=== PATIENT | male | born 1970 | race Caucasian/White ===

== ENCOUNTER 2016-06-20 19:10 | Emergency (ER) | payer OTHER ==
[2016-06-20 20:13] LABS: BASO % 0.2 % (0.2-1.2); EOS # 0.6 10_X3_uL (0.0-0.5); EOS % 3.9 % (0.8-7.0); GRAN # 14.4 10_X3_uL (1.8-5.4); GRAN % 88.7 % (34.0-67.9); HEMATOCRIT 50.4 % (40-51); HEMOGLOBIN 17.9 g/dL (13.7-17.5); LYMPH # 0.4 10_X3_uL (1.3-3.6); LYMPH % 2.3 % (21.8-53.1); MEAN CORPUSCULAR HEMOGLOBIN 32.5 pg (27.0-33.0); MEAN CORPUSCULAR HGB CONC 35.5 g/dL (32.0-36.0); MEAN CORPUSCULAR VOLUME 91.6 fL (79-92); MEAN PLATELET VOLUME 9.9 fl (7.5-11.5); MONO # 0.8 10_X3_uL (0.3-0.8); MONO % 4.9 % (5.3-12.2); PLATELET COUNT 351 x10_3/uL (163-337); RED CELL DISTRIBUTION WIDTH 12.7 % (11.6-14.4); WHITE BLOOD COUNT 16.2 x10_3/uL (4.2-9.1)
[2016-06-20 20:26] LABS: ALBUMIN 4.5 gm/dL (3.4-5.0); ALKALINE PHOSPHATASE 79 U/L (50-136); ALT/SGPT 26 U/L (7.53-40.17); AMYLASE 55 U/L (15.62-74.58); AST/SGOT 23 U/L (6.66-35.34); BILIRUBIN,TOTAL 0.63 mg/dL (0.0-1.0); BLOOD UREA NITROGEN 14 mg/dL (7-18); CALCIUM 9.2 mg/dL (8.7-10.7); CARBON DIOXIDE 21 mmol/L (21-32); CREATININE 0.9 mg/dL (0.6-1.3); GLUCOSE,RANDOM 97 mg/dL (70-99); LIPASE 29 U/L (6.75-60.75); POTASSIUM 4.4 mmol/L (3.5-5.1); SODIUM 136 mmol/L (136-145); TOTAL PROTEIN 7.7 gm/dL (6.4-8.2)
== END 2016-06-20 23:05 | disposition short-term general hospital (02) ==
LOC: ER 19:10
PROVIDERS: General Practice
DX: J84.9 Interstitial pulmonary disease, unspecified (principal); R79.89 Other specified abnormal findings of blood chemistry; K52.9 Noninfective gastroenteritis and colitis, unspecified; R10.13 Epigastric pain; R10.12 Left upper quadrant pain; R11.2 Nausea with vomiting, unspecified; J44.9 Chronic obstructive pulmonary disease, unspecified; K21.9 Gastro-esophageal reflux disease without esophagitis; Z90.49 Acquired absence of other specified parts of digestive tract; R63.0 Anorexia; Z88.5 Allergy status to narcotic agent; Z79.899 Other long term (current) drug therapy
CPT/HCPCS: 36415; 71010; 80053; 82150; 83605; 83690; 85025; 87040; 93005; 96361; 96365; 96372; 96375; 96376; 99070; 99285-25; J7040; Q9967